=== PATIENT | male | born 1995 | race Caucasian/White ===

== ENCOUNTER 2016-07-13 16:58 | Emergency (ER) | payer MEDICAID ==
[~2016-07-13] VITALS: Ht 180.3 cm; Wt 96.6 kg
[2016-07-13 17:09] VITALS: BP 130/78
== END 2016-07-13 23:00 | disposition left against medical advice (07) ==
LOC: EDBD 16:58 → ER 17:11
DX: R10.9 Unspecified abdominal pain (principal); F10.129 Alcohol abuse with intoxication, unspecified; Z53.21 Procedure and treatment not carried out due to patient leaving prior to being seen by health care provider